=== PATIENT | male | born 1960 | race African-American/Black ===

== ENCOUNTER 2017-02-27 20:28 | Emergency (ER) | payer OTHER ==
[~2017-02-27] VITALS: Ht 172.7 cm; Wt 83.9 kg
[~2017-02-27 20:28] MED LIST: ASPIR 8181 MG ORAL; ATORVASTATIN CA40 MG ORAL; CEPHALEXIN500 MG ORAL; FISH OIL300 M1 PO; HYDROCODON-ACE1 EA15 ORAL; ISOSORBIDE MONO20 MG PO; LISINOPRIL5 MG ORAL; METOPROLOL TART25 MG ORAL; NITROGLYCERIN0.4 MG SL; PROAIR HFA8.5 GM INH; TYLENOL EXTRA500 MG ORAL; VITAMIN D1000 UNI1 ORAL
[2017-02-27 21:45] VITALS: BP 135/44
[2017-02-27 23:20] VITALS: BP 129/53
[2017-02-27] MEDS ORDERED: FLONASE ALLERG9.9 ML NS (23:22)
[2017-02-27] MEDS ORDERED: AMOXICILLIN500 MG ORAL (23:22)
[2017-02-27 23:23] VITALS: BP 135/44
--- NOTE | 2017-02-28 01:28 | Emergency Room Report ---
History of Present Illness General Chief Complaint: General Complaint Source: Patient Present Illness HPI 57-year-old male presents ED for evaluation. States that he has a growth inside his right nostril. Has been there for the last 2 years but gets urine smaller. Is currently very big. States he has difficulty breathing out of his right nostril. Patient states he showed this to the doctors at the [facility] once and he was recommended a prescription for a spray. Patient never filled the prescription. Patient denies any pain. Denies any headache, blurry vision. No other aggravating relieving factors. Denies any other associated symptom Allergies: Coded Allergies: No Known Allergies (Unverified , 08/08/16) Patient History Past Medical History: HTN Past Surgical History: none Pertinent Family History: none Social History: Denies: alcohol use, drug use, smoking Immunizations: UTD Reviewed Nursing Documentation: PMH: Agreed, PSxH: Agreed Nursing Documentation-PMH Hx Hypertension: Yes Review of Systems All Other Systems: negative except mentioned in HPI Physical Exam Vital Signs Date Time Temp Pulse Resp B/P Pulse Ox O2 Delivery O2 Flow Rate FiO2 02/27/17 21:24 97.2 61 16 135/44 99 Room Air Sp02 EP Interpretation: reviewed, normal General Appearance: no apparent distress, alert, GCS 15, non-toxic Head: normocephalic Eyes: bilateral eye PERRL, bilateral eye normal inspection ENT: normal pharynx, no angioedema, normal voice, TMs + canals normal, other - large fleshy mass noted in R nostril Neck: full range of motion, supple/symm/no masses Respiratory: chest non-tender, lungs clear, normal breath sounds, speaking full sentences Cardiovascular #1: regular rate, rhythm, no edema Gastrointestinal: normal inspection Rectal: deferred Genitourinary: no CVA tenderness Musculoskeletal: normal inspection Neurologic: alert, oriented x3, responsive, motor strength/tone normal, sensory intact, speech normal Psychiatric: normal inspection Skin: normal inspection Lymphatic: normal inspection Medical Decision Making Diagnostic Impression: Primary Impression: Nasal polyps ER Course 57-year-old presents to ED with mass in his right nostril. X2 years Differential-polyps, mass, inflammation Patient placed on stretcher. After initial history, physical exam reveals a middle-aged male no acute distress. On exam there is complete obstruction with a fleshy colored mass in the right nostril. Patient has had this on and off for the last 2 years. There is no acute emergency. However to better characterize the mass we will order a CT CT head unremarkable CT facial bones shows a mass extending towards the right nostril. Patient states he will followup with his PMD at the [facility] to get ENT referral for further evaluation Diagnoses-nasal polyp. stable and discharged home prescription for Flonase spray. Followup with PMD/ ENT. Return to ED if symptoms recur or worsen CT/MRI/US Diagnostic Results CT/MRI/US Diagnostic Results : Imaging Test Ordered: CT Head, CT Facial Impression CT head - no acute process CT Facial -Right nasal mass extending anteriorly towards the right nostril measuring at least 2 cm. Correlate with physical exam. Presumed obstruction of the meatus causing right side predominant paranasal sinus opacification. It is also possible that a mass started in the right maxillary sinus and expanded into the nasal cavity, obstructing the other sinuses Last Vital Signs Date Time Temp Pulse Resp B/P Pulse Ox O2 Delivery O2 Flow Rate FiO2 02/27/17 23:23 97.2 16 135/44 99 Room Air 02/27/17 23:20 72 Status: improved Disposition: HOME, SELF-CARE Condition: Stable Scripts Amoxicillin* (AMOXIL*) 500 Mg Capsule 500 MG ORAL THREE TIMES A DAY, #21 CAP Prov: PATRICIA SUH M.D. 02/27/17 Fluticasone Propionate (Flonase Allergy Relief) 9.9 Ml [place].susp 1 SPRAY NS BID, #1 UNIT Prov: PATRICIA SUH M.D. 02/27/17 Patient Instructions: NoseblePATRICIA Armenta M.D. Feb 28, 2017 01:28
--- NOTE | 2017-02-28 08:49 | Diagnostic Imaging Report ---
Indications: Right facial swelling and pain Technique: Spiral acquisitions obtained through the brain. Angled axial and coronal 5 x 5 mm slices were reconstructed. Total dose length product 1361 mGycm. CTDI vol(s) 70 mGy. Dose reduction achieved using automated exposure control Comparison: None Findings: No acute hemorrhage or edema. No mass effect or midline shift. Normal au-white differentiation mild age-related enlargement extra-axial CSF spaces. Normal caliber ventricles. Intact calvarium. Mastoids are clear. There is a 2 cm posterior parietal midline scalp lesion the subcutaneous fat there is opacification of the right-sided and maxillary sinuses, as well as extensive ethmoid and less extensive sphenoid opacification. There is also considerable periosteal thickening Impression: Negative for acute intracranial bleed or mass effect Mild age-related volume loss Extensive sinus disease Nonspecific scalp lesion within the subcutaneous fat This agrees with the preliminary interpretation provided overnight by [facility]. The CT scanner at [facility] is accredited by the [employer] and the scans are performed using protocols designed to limit radiation exposure to as low as reasonably achievable to attain images of sufficient resolution adequate for diagnostic evaluation.
--- NOTE | 2017-02-28 08:56 | Diagnostic Imaging Report ---
Indications: Right facial swelling and pain Technique: Spiral images obtained through the maxillofacial sinuses. No IV contrast utilized. Multiplanar reconstructions were generated.Total dose length product 522 mGycm. CTDIvol(s) 28mGy. Dose reduction achieved using automated exposure control Comparison: None Findings: Extensive confluent polyposis fills the right maxillary sinus and most of the right nasal fossa. This results in near complete destruction of the medial right maxillary wall as well as of the nasal turbinates. This displaces the nasal septum to the left. This extends into the anterior ethmoid air cells as well, some of which are expanded. A small segment of the anterolateral ethmoid wall is destroyed. Confluent polyposis also extends into the right frontal sinus. The anterior and lateral maxillary guaman demonstrate marked periosteal thickening. Is also some periosteal thickening of the frontal sinus guaman. Less extensive sinus disease is seen in the left maxillary sinus, where there is an inferior and medial mucosal thickening. Numerous left ethmoid air cells are opacified, and there is also minimal sphenoid sinus disease. The optic globes and retroseptal orbits are intact. No acute fractures. There are multiple missing but the remaining dentition is grossly intact. Impression: Extensive confluent soft tissue filling the right maxillary sinus, right nasal fossa, and extending cephalad into the right ethmoid air cells and frontal sinuses. There is extensive bony destruction, as described. There is also considerable periosteal thickening. 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 Neoplasm is also in the differential. Less extensive left-sided sinus disease, as described The CT scanner at [facility] is accredited by the [employer] and the scans are performed using protocols designed to limit radiation exposure to as low as reasonably achievable to attain images of sufficient resolution adequate for diagnostic evaluation.
== END 2017-02-27 23:23 | disposition home or self-care (01) ==
LOC: EMR 21:22
DX: J33.9 Nasal polyp, unspecified (principal); J32.9 Chronic sinusitis, unspecified
CPT/HCPCS: 70450; 70486; 99284

== ENCOUNTER 2017-09-18 10:32 | Emergency (ER) | payer OTHER ==
[~2017-09-18] VITALS: Ht 172.7 cm; Wt 74.8 kg
[~2017-09-18 10:32] MED LIST changes: +AMOXICILLIN500 MG ORAL; +FLONASE ALLERG9.9 ML NS
[2017-09-18 10:45] VITALS: BP 119/78
[2017-09-18 13:51] VITALS: BP 124/71
--- NOTE | 2017-09-18 14:17 | Emergency Room Report ---
History of Present Illness General Chief Complaint: Skin Rash/Abscess Source: Patient Present Illness HPI Patient states that he woke up this morning with swelling on his lower lip. He states that throughout the morning the swelling progressed to include his entire lower lip and part of his upper lip. He denies shortness of breath. He denies difficulty breathing. He denies tongue swelling or abnormal sensation of his tongue. He denies pain. He has no other complaints. Allergies: Coded Allergies: No Known Allergies (Unverified , 08/08/16) Patient History Past Medical History: see triage record, HTN, CAD Social History: Denies: smoking, alcohol use, drug use Reviewed Nursing Documentation: PMH: Agreed, PSxH: Agreed Nursing Documentation-PMH Hx Hypertension: Yes Review of Systems All Other Systems: negative except mentioned in HPI Physical Exam Vital Signs Date Time Temp Pulse Resp B/P (MAP) Pulse Ox O2 Delivery O2 Flow Rate FiO2 09/18/17 10:44 98.4 70 20 119/78 97 Room Air Sp02 EP Interpretation: reviewed, normal General Appearance: no apparent distress, alert, GCS 15, non-toxic Head: normocephalic, atraumatic Eyes: bilateral eye normal inspection, bilateral eye PERRL ENT: hearing grossly normal, normal pharynx, normal voice, uvula midline, other - clear swelling of both lips consistent with angioedema. Neck: full range of motion, supple/symm/no masses Respiratory: chest non-tender, lungs clear, normal breath sounds, speaking full sentences Cardiovascular #1: regular rate, rhythm, no edema Gastrointestinal: normal bowel sounds, non tender, soft, non-distended, no guarding, no rebound Rectal: deferred Musculoskeletal: back normal, gait/station normal, normal range of motion, non- tender Neurologic: alert, oriented x3, responsive, motor strength/tone normal, sensory intact, speech normal Psychiatric: judgement/insight normal, memory normal, mood/affect normal, no suicidal/homicidal ideation Skin: normal color, no rash, warm/dry, well hydrated Medical Decision Making Diagnostic Impression: Primary Impression: Angio-edema ER Course Patient presents with angioedema. He is on lisinopril. He has no tongue or throat involvement. He has no shortness of breath. He only has lip involvement. He was observed here in the emergency department without any further progression. The patient desired to go home. He was given very close return precautions for any further worsening/or oral, tongue or airway involvement. He was instructed to stop lisinopril. He was also instructed to followup closely with his primary care physician. He is given very close return precautions and followup instructions. Last Vital Signs Date Time Temp Pulse Resp B/P (MAP) Pulse Ox O2 Delivery O2 Flow Rate FiO2 09/18/17 13:51 98.4 68 20 124/71 97 Room Air Status: improved Disposition: HOME, SELF-CARE Condition: Improved Scripts Diphenhydramine HCl (Benadryl) 25 Mg Capsule 25 MG PO Q6HR, #14 CAP Prov: DAYANARA FRANK D.O. 09/18/17 Prednisone* (PREDNISONE*) 20 Mg Tablet 40 MG ORAL DAILY, #10 TAB Prov: DAYANARA FRANK D.O. 09/18/17 Referrals: [facility],REFERRING (PCP) DAYANARA FRANK D.O. Sep 18, 2017 14:17
[2017-09-18] MEDS ORDERED: PREDNISONE20 MG ORAL (14:19)
[2017-09-18] MEDS ORDERED: BENADRYL25 M3 PO (14:19)
== END 2017-09-18 14:21 | disposition home or self-care (01) ==
LOC: EMR 11:15
DX: T78.3XXA Angioneurotic edema, initial encounter (principal); I10 Essential (primary) hypertension; I25.10 Atherosclerotic heart disease of native coronary artery without angina pectoris
CPT/HCPCS: 99283; J7512

== ENCOUNTER 2019-02-13 15:10 | Emergency (ER) | payer OTHER ==
[~2019-02-13] VITALS: Ht 172.7 cm; Wt 77.1 kg
[~2019-02-13 15:10] MED LIST changes: +BENADRYL25 M3 PO; +PREDNISONE20 MG ORAL
[2019-02-13 15:19] VITALS: BP 111/73
--- NOTE | 2019-02-13 15:19 | NUR ---
ED Nurse Note: pt walked in to ER c/o chest pain 30 minutes ago which lasted for 5 minutes. per pt, he has had heartattack years ago but the chest pain has not lasted more than a minute. pt aao x4 and ambulatory. skin clean and intact. calm and cooperative. pt denied pain at this moment.
[2019-02-13] MEDS ORDERED: Aspirin Baby 81mg ORAL ONE (15:45)
--- NOTE | 2019-02-13 16:10 | NUR ---
ED Nurse Note: X-ray at bedside.
--- NOTE | 2019-02-13 16:13 | Emergency Room Report ---
History of Present Illness General Chief Complaint: Chest Pain Source: Patient, Medical Record Present Illness HPI Patient is a 59-year-old male brought in by self after increased chest discomfort. Patient reports having prior history of [place] approximately 10 years ago. He states that he has been having pain on and off for several minutes at a time onset during light activity. Patient denies any current pain now. He reports taking medications for hypertension as well as high cholesterol. Patient had onset of symptoms approximately 1 hour prior to arrival. He denies any chest discomfort. Allergies: Coded Allergies: No Known Allergies (Unverified , 08/08/16) Patient History Past Medical History: see triage record Reviewed Nursing Documentation: PMH: Agreed; PSxH: Agreed Nursing Documentation-PMH Past Medical History: No History, Except For Hx Hypertension: Yes Review of Systems All Other Systems: negative except mentioned in HPI Physical Exam Vital Signs Date Time Temp Pulse Resp B/P (MAP) Pulse Ox O2 Delivery O2 Flow Rate FiO2 02/13/19 15:13 98.1 77 16 111/73 (86) 95 Room Air Sp02 EP Interpretation: reviewed, normal General Appearance: normal inspection, well appearing, no apparent distress, alert, GCS 15, non-toxic Head: atraumatic ENT: normal ENT inspection, hearing grossly normal, normal voice Neck: normal inspection, full range of motion, supple, no bony tend Respiratory: normal inspection, lungs clear, normal breath sounds, no respiratory distress, no retraction, no wheezing Cardiovascular #1: regular rate, rhythm, no edema Gastrointestinal: normal inspection, normal bowel sounds, non tender, soft, no guarding, no hernia Genitourinary: no CVA tenderness Musculoskeletal: normal inspection, back normal, normal range of motion Neurologic: normal inspection, alert, oriented x3, responsive, 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 Differential diagnosis included but was not limited to acute coronary syndrome, pulmonary embolism, pneumonia, aortic dissection, shingles, pneumothorax, aortic dissection, esophageal rupture, pericarditis. Because of complexity of patient's case laboratory testing and imaging studies were ordered. Patient was noted to have chest pain which had onset during minimal activity. This is unusual for the patient. Pain resolved spontaneously however given the patient's prior history of coronary artery disease patient was given aspirin. Patient was discussed with Dr. Enrique. Patient will be transferred to [facility] for further evaluation of unstable angina . Labs Test 02/13/19 16:10 White Blood Count 10.0 K/UL (4.8-10.8) Red Blood Count 4.40 M/UL (4.70-6.10) Hemoglobin 12.9 G/DL (14.2-18.0) Hematocrit 38.0 % (42.0-52.0) Mean Corpuscular Volume 86 FL (80-99) Mean Corpuscular Hemoglobin 29.4 PG (27.0-31.0) Mean Corpuscular Hemoglobin Concent 34.1 G/DL (32.0-36.0) Red Cell Distribution Width 11.5 % (11.6-14.8) Platelet Count 290 K/UL (150-450) Mean Platelet Volume 5.9 FL (6.5-10.1) Neutrophils (%) (Auto) 53.5 % (45.0-75.0) Lymphocytes (%) (Auto) 33.9 % (20.0-45.0) Monocytes (%) (Auto) 6.0 % (1.0-10.0) Eosinophils (%) (Auto) 5.0 % (0.0-3.0) Basophils (%) (Auto) 1.6 % (0.0-2.0) D-Dimer < 0.19 mg/L FEU Sodium Level 140 MMOL/L (136-145) Potassium Level 3.7 MMOL/L (3.5-5.1) Chloride Level 105 MMOL/L (98-107) Carbon Dioxide Level 26 MMOL/L (21-32) Anion Gap 9 mmol/L (5-15) Blood Urea Nitrogen 15 mg/dL (7-18) Creatinine 1.1 MG/DL (0.55-1.30) Estimat Glomerular Filtration Rate > 60 mL/min (>60) Glucose Level 109 MG/DL (74-106) Calcium Level 9.1 MG/DL (8.5-10.1) Total Bilirubin 0.2 MG/DL (0.2-1.0) Aspartate Amino Transf (AST/SGOT) 14 U/L (15-37) Alanine Aminotransferase (ALT/SGPT) 22 U/L (12-78) Alkaline Phosphatase 66 U/L (46-116) Total Creatine Kinase 123 U/L (26-308) Creatine Kinase MB 1.2 NG/ML (0.0-3.6) Creatine Kinase MB Relative Index 0.9 Troponin I 0.000 ng/mL (0.000-0.056) Pro-B-Type Natriuretic Peptide 168 pg/mL (0-125) Total Protein 7.3 G/DL (6.4-8.2) Albumin 3.9 G/DL (3.4-5.0) Globulin 3.4 g/dL Albumin/Globulin Ratio 1.1 (1.0-2.7) Lipase 229 U/L (73-393) Urine Opiates Screen Negative (NEGATIVE) Urine Barbiturates Screen Negative (NEGATIVE) Phencyclidine (PCP) Screen Negative (NEGATIVE) Urine Amphetamines Screen Negative (NEGATIVE) Urine Benzodiazepines Screen Negative (NEGATIVE) Urine Cocaine Screen Negative (NEGATIVE) Urine Marijuana (THC) Screen Negative (NEGATIVE) EKG Diagnostic Results Rate: normal Rhythm: NSR ST Segments: no acute changes Last Vital Signs Date Time Temp Pulse Resp B/P (MAP) Pulse Ox O2 Delivery O2 Flow Rate FiO2 02/13/19 15:19 77 16 Room Air 02/13/19 15:19 98.1 111/73 95 Status: improved Disposition: XFER SHT-TRM HOSP Condition: Stable Mani Lynne MD Feb 13, 2019 16:13
[2019-02-13 16:30] VITALS: BP 121/68
[2019-02-13 16:30] LABS: BASOPHILS % (AUTO) 1.6 % (0.0-2.0); HEMOGLOBIN 12.9 G/DL (14.2-18.0); LYMPHOCYTES % (AUTO) 33.9 % (20.0-45.0); MEAN CORPUSCULAR VOLUME 86 FL (80-99); NEUTROPHILS % (AUTO) 53.5 % (45.0-75.0); PLATELET COUNT 290 K/UL (150-450); RED CELL DISTRIBUTION WIDTH 11.5 % (11.6-14.8)
[2019-02-13 16:45] LABS: ANION GAP 9 mmol/L (5-15); BLOOD UREA NITROGEN 15 mg/dL (7-18); CALCIUM 9.1 MG/DL (8.5-10.1); CARBON DIOXIDE 26 MMOL/L (21-32); CHLORIDE 105 MMOL/L (98-107); CREATININE 1.1 MG/DL (0.55-1.30); POTASSIUM 3.7 MMOL/L (3.5-5.1); SODIUM 140 MMOL/L (136-145)
[2019-02-13 16:59] LABS: ALANINE AMINOTRANSFERASE 22 U/L (12-78); ALBUMIN 3.9 G/DL (3.4-5.0); ALBUMIN/GLOBULIN RATIO 1.1 (1.0-2.7); ALKALINE PHOSPHATASE 66 U/L (46-116); ASPARTATE AMINO TRANSFERASE 14 U/L (15-37); BILIRUBIN,TOTAL 0.2 MG/DL (0.2-1.0); CKMB 1.2 NG/ML (0.0-3.6); CREATINE KINASE 123 U/L (26-308)
--- NOTE | 2019-02-13 17:28 | Diagnostic Imaging Report ---
EXAM: XR Chest, 1 View CLINICAL HISTORY: CP TECHNIQUE: Frontal view of the chest. COMPARISON: none FINDINGS: Lungs: Unremarkable. No consolidation. Pleural space: Unremarkable. No pneumothorax. Heart: Unremarkable. No cardiomegaly. Mediastinum: Unremarkable. Bones/joints: Unremarkable. IMPRESSION: Normal chest x-ray.
[2019-02-13 19:00] VITALS: BP 146/78
--- NOTE | 2019-02-13 19:10 | NUR ---
HAND-OFF: Report given to MIKAYLA Harper. transfer has been requested and waiting for the call information. sandwich provided. no orders to carry at this moment.
--- NOTE | 2019-02-13 19:15 | NUR ---
ED Nurse Note: Received report from Hima Good RN. Pt awake , resting. No distress noted. Pt denies pain. Pt's needs met. Will continue to monitor.
[2019-02-13 19:48] VITALS: BP 136/66
--- NOTE | 2019-02-13 20:34 | NUR ---
ED Nurse Note: Report given to Slick DEGROOT at [facility]. CN made aware.
--- NOTE | 2019-02-16 15:06 | Cardiology Report ---
APPROVED REPORT EKG Measurement Heart [id number] Normal sinus rhythm Right bundle branch block Abnormal ECG
== END 2019-02-13 19:55 | disposition short-term general hospital (02) ==
LOC: EDBEDREQ 15:44 → EMR 16:30
DX: R07.9 Chest pain, unspecified (principal); I24.9 Acute ischemic heart disease, unspecified; I25.2 Old myocardial infarction; I10 Essential (primary) hypertension; E78.00 Pure hypercholesterolemia, unspecified
CPT/HCPCS: 36415; 71045; 80053; 80307; 82550; 82553; 83690; 83880; 84484; 85025; 85379; 93005; 99285